=== PATIENT | male | born 1950 ===

== ENCOUNTER 2024-11-02 08:13 | Outpatient (AMB) | payer OTHER, MEDICAID, SELFPAY ==
--- NOTE | 2024-11-02 08:22 | A.OFFVIS_ITS ---
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 He started noticing tremors in his hands 3 mths ago - intermittent with action.It does not bother him and he is unaware of his tremors most of the time but his notices when he is eating. No rest tremors It lamb snot affect his ADLs. STress worsens it. He has h/p leg cramps at rest and sleep and gabapentin helps. [facility]LY [facility] Medical History Occasional tremors Internal hemorrhoid Dyspnea on exertion Diverticulitis Depression Chest discomfort Allergic rhinitis Varicocele PFO (patent foramen ovale) Peyronie's disease Memory loss Benign localized hyperplasia of prostate with urinary obstruction Atrial flutter Chronic coronary microvascular dysfunction Tremor Surgical History H/O hemorrhoidectomy H/O hernia repair H/O colonoscopy Family History Mother No problems noted. Brother No problems noted. Social History Comment: social Patient Tobacco Use Status: Never used Tobacco Physical Exam Vital Signs: Last Vital Signs Pulse 69 11/02/24 08:25 BP 110/70 11/02/24 08:25 Pulse Ox 97 11/02/24 08:25 Oxygen Delivery Method Room Air 11/02/24 08:25 BMI result Body Mass Index 30.0 Const General: cooperative, healthy appearing, comfortable and no acute distress Nutritional Appearance: average body habitus Orientation/consciousness: patient oriented x3 Eyes Pupils: Equal, round and reactive pupils present Neuro Other: no postural or rest tremor Very mild action tremors intermittent General: patient oriented x3, gait normal, tone normal, moves all extremities and no focal motor deficits Cranial nerves: Yes Facial sensation intact/muscles of mastication intact, Yes Equal, round and reactive pupils present, Yes Bilaterally intact EOM present, Yes Nystagmus not present, Yes Normal facial strength present and Yes Midline tongue present Cognition (Neuro): normal cognition Gait exam (Neuro): Normal gait present Motor exam (neuro): 5/5 motor strength present throughout and Normal motor muscle tone present throughout Deep tendon reflexes (DTR's): Right triceps reflex intensity grade: 1+, Left triceps reflex intensity grade: 1+, Rt Biceps (C5, C6): 1+, Left biceps reflex intensity grade: 1+, Right brachioradialis reflex intensity grade: 1+, Left brachioradialis reflex intensity grade: 1+, Right patellar reflex intensity grade: 1+ and Left patellar reflex intensity grade: 1+ Coordination: [id number] test normal Assessment & Plan Assessment & Plan (1) Occasional tremors: Comment: senile vs exaggerated physiological tremors Code(s): R25.1 - Tremor, unspecified Category: Medical Plan No signs of Parkinson's on todays visit Discussed various etiologies of tremors. No need for emdications as the tremors are mild and does not affect his ADLs. Labs form PCP for review - TSH B12 etc F/u in 1 year Coding Level of Care Code New Pt Level 4 (82655) Diagnoses Occasional tremors R25.1
[2024-11-02 08:25] VITALS: BP 110/70; PULSE 69; O2SAT 97
== END 2024-11-02 08:49 | disposition home or self-care (01) ==
LOC: HO.HSMS 08:13
PROVIDERS: PCP Student in an Organized Health Care Education/Training Program; Visit Provider Psychiatry & Neurology Neurology
DX: R25.1 Tremor, unspecified (principal)
CPT/HCPCS: 99204